=== PATIENT | male | born 1995 | race Caucasian/White ===

== ENCOUNTER 2022-10-29 17:59 | Emergency (ER) | payer BC, OTHER ==
[2022-10-29 18:23] VITALS: BP 132/93; PULSE 94; RESP 18; TEMP 99.2; BMI 20.7
[2022-10-29] MEDS ORDERED: KETOROLAC TROMETHAMINE 30 MG/1 ML VIAL IM ONE (18:39)
[2022-10-29] MEDS ORDERED: ONDANSETRON *ODT* 4 MG TABLET SL ONE (18:39)
[2022-10-29] MEDS ORDERED: SODIUM CHLORIDE 1,000 ML IV STA (18:41)
[2022-10-29] MEDS ORDERED: ONDANSETRON 4 MG/2 ML VIAL IVPUSH ONE (18:41)
[2022-10-29] MEDS ORDERED: KETOROLAC TROMETHAMINE 30 MG/1 ML VIAL IVPUSH ONE (18:42)
[2022-10-29] MEDS ORDERED: KETOROLAC TROMETHAMINE 30 MG/1 ML VIAL ONE (18:55)
[2022-10-29] MEDS ORDERED: ONDANSETRON 4 MG/2 ML VIAL ONE (18:55)
[2022-10-29 19:20] LABS: HEMATOCRIT 43.1 % (35.4-49); HEMOGLOBIN 16.4 G/dL (11.7-16.9); MCH 32.7 pg (25.7-33.7); MCHC 38.1 g/dl (32.0-35.9); MEAN CELL VOLUME 85.6 fl (80-96); MEAN PLT VOLUME 8.6 fl (7.5-11.1); PLATELET COUNT 251.8 10^3/uL (134-434); RBC 5.03 10^6/uL (4.00-5.60); RDW 13.7 % (11.9-15.9); WHITE BLOOD COUNT 8.1 10^3/uL (4.0-10.8)
[2022-10-29 19:21] LABS: ALBUMIN 5.1 g/dl (3.4-5.0); BILIRUBIN,TOTAL 0.7 mg/dl (0.2-1); CALCIUM 9.3 mg/dl (8.5-10); TOT PROT 7.9 g/dl (6.4-8.2)
[2022-10-29 19:46] LABS: CALCIUM OXALATE CRYSTALS FEW /hpf (NONE SEEN); URIC ACID CRYSTALS 1+ /hpf (NONE SEEN)
[2022-10-29 20:59] LABS: PLATELET ESTIMATE ADEQUATE
== END 2022-10-29 20:14 | disposition home or self-care (01) ==
LOC: FER 17:59
PROC: 3E0333Z Introduction of Anti-inflammatory into Peripheral Vein, Percutaneous Approach (ICD-10-PCS; principal; 2022-10-29)
PROC: 3E033GC Introduction of Other Therapeutic Substance into Peripheral Vein, Percutaneous Approach (ICD-10-PCS; 2022-10-29)
PROC: 3E0337Z Introduction of Electrolytic and Water Balance Substance into Peripheral Vein, Percutaneous Approach (ICD-10-PCS; 2022-10-29)
DX: R31.9 Hematuria, unspecified (principal); R10.32 Left lower quadrant pain
CPT/HCPCS: 36415; 74176-TC; 80053; 81003; 81015; 85027; 87086; 87491; 87591; 99284-25